=== PATIENT | male | born 1980 | race American Indian/Alaskan Native ===

== ENCOUNTER 2018-01-13 12:02 | Emergency (ER) | payer BC ==
[2018-01-13 12:18] VITALS: BP 137/86; PULSE 64; RESP 16; TEMP 98; O2SAT 99
[2018-01-13] MEDS ORDERED: Lidocaine 2% MPF (5 ml) Inj ONE (12:21)
[2018-01-13] MEDS ORDERED: Bacitracin 500 Units/gm Oint Foilpak UD ONE (12:21)
--- NOTE | 2018-01-13 12:27 | C.PDOC ---
History Of Present Illness 37 yo male come in for evaluation of laceration to Right hand sustained [employer] " working on car, cut with knife". Pt reports mildpain and bleeding over laceration side. Otherwise, pt denies deformity, weakness, sensory or vascular deficits to Right hand, denies any other active complaints. Ambulate to ED for evaluation, not in any apparent distress. Time Seen by Provider: 01/13/18 12:07 Chief Complaint (Nursing): Abnormal Skin Integrity History Per: Patient Onset/Duration Of Symptoms: Sudden Onset Past Medical History Reviewed: Historical Data, Nursing Documentation, Vital Signs Vital Signs: Last Vital Signs Temp 98 F 01/13/18 12:09 Pulse 64 01/13/18 12:09 Resp 16 01/13/18 12:09 BP 137/86 01/13/18 12:09 Pulse Ox 99 01/13/18 12:27 - Medical History PMH: No Chronic Diseases Family History: States: No Known Family Hx - Social History Hx Tobacco Use: No Hx Alcohol Use: No Hx Substance Use: No - Immunization History Hx Tetanus Toxoid Vaccination: No Hx Influenza Vaccination: No Hx Pneumococcal Vaccination: No Review Of Systems Except As Marked, All Systems Reviewed And Found Negative. Constitutional: Negative for: Fever, Chills ENT: Negative for: Throat Pain Cardiovascular: Negative for: Chest Pain Musculoskeletal: Positive for: Hand Pain Skin: Positive for: Lesions Neurological: Negative for: Weakness, Numbness Physical Exam - Physical Exam Appears: Well, Non-toxic, No Acute Distress Skin: Normal Color, Warm, Other (4cm cutaneous linear laceration over ulnar aspect Right hand, mild bloody oozing, no wound FB, no edema, no erythema.) Head: Normacephalic Eye(s): bilateral: PERRL Extremity: Normal ROM (of Right hand FAROM without difficulty, no neurovascular deficits distally), Tenderness (ulnar aspect Right hand around laceration), No Deformity, No Swelling ED Course And Treatment O2 Sat by Pulse Oximetry: 99 Pulse Ox Interpretation: Normal Progress Note: On re-eavluation, pt is afebrile, hemodynamicaly stable. NOn- toxic. Ambulatory in ED with stable gait. Right hand: laceration over ulnaraspect hand repaired w/sutures w/o difficulty. FAROM, no neurovascular deficits. tetanus given. Pt advised on wound care. ref. to f/u with PMD in 2 days for wound check. return to ED if any worsening or new hcanges. Laceration - Laceration Repair Right hand Wound Length (In cm): 4cm Description Of Wound: Linear Wound Cleansed With: Betadine Anesthesia: Lidocaine 2% Wound Examination: Irrigated With Saline, No FB With Wound Exploration, No Tendon Injury With Wound Exploration Wound Closure: Suture (#7) Suture Technique And Material Used: Interrupted, Nylon (4-0) Wound Complexity: Simple Disposition Counseled Patient/Family Regarding: Diagnosis, Need For Followup, Rx Given - Disposition Referrals: [facility] [Outside] Disposition: HOME/ ROUTINE Disposition Time: 12:52 Condition: STABLE Additional Instructions: Keep wound dry for 3-4 days, avoid prolong water exposure ( swimming, dishwashing, etc) Clean daily with Peroxide, apply antibacterial cream topically daily Take medication as prescribed Ibuprofen as need for pain Suture removal in 10 days Return to ED at any time if any sign of infection or any otehr new changes. Prescriptions: Cephalexin [cephalexin] 500 mg PO Q6 #28 cap Instructions: Laceration Repair With Stitches (DC) Forms: [employer] ([place]an) - Clinical Impression Clinical Impression: Laceration of hand
[2018-01-13] MEDS ORDERED: Lidocaine 2% Inj (20ml) INFIL ONE (12:28)
[2018-01-13] MEDS ORDERED: Bacitracin Ointment 30 GM TUBE TOP STA (12:28)
[2018-01-13] MEDS ORDERED: Tetanus/Diphtheria Toxoids 0.5 ml Syringe IM ONE ×2 (12:28→12:45)
== END 2018-01-13 13:03 | disposition home or self-care (01) ==
LOC: C.ER 12:02
DX: S61.411A Laceration without foreign body of right hand, initial encounter (principal); W26.0XXA Contact with knife, initial encounter; Y92.89 Other specified places as the place of occurrence of the external cause; Z23 Encounter for immunization

== ENCOUNTER 2018-01-23 10:00 | Emergency (ER) | payer BC ==
[2018-01-23 10:14] VITALS: BP 128/74; PULSE 62; RESP 20; TEMP 98.5; O2SAT 99
--- NOTE | 2018-01-23 10:24 | C.PDOC ---
History Of Present Illness 37 y/o male presents to ED for suture removal on right hand placed 10 days ago after sustaining laceration while working on car. Patient denies drainage, fever , new injury, numbness or weakness to hand. No other complaints at this time. Time Seen by Provider: 01/23/18 10:15 Chief Complaint (Nursing): Wound Check History Per: Patient History/Exam Limitations: no limitations Onset/Duration Of Symptoms: Days Ago, Laceration Current Symptoms Are (Timing): Still Present Past Medical History Reviewed: Historical Data, Nursing Documentation, Vital Signs Vital Signs: Last Vital Signs Temp 98.5 F 01/23/18 10:15 Pulse 62 01/23/18 10:15 Resp 20 01/23/18 10:15 BP 128/74 01/23/18 10:15 Pulse Ox 99 01/23/18 10:29 - Medical History PMH: No Chronic Diseases Surgical History: No Surg Hx Family History: States: No Known Family Hx - Social History Hx Tobacco Use: No Hx Alcohol Use: No Hx Substance Use: No - Immunization History Hx Tetanus Toxoid Vaccination: No Hx Influenza Vaccination: No Hx Pneumococcal Vaccination: No Review Of Systems Constitutional: Negative for: Fever, Chills Musculoskeletal: Positive for: Hand Pain Skin: Negative for: Rash, Bruising Neurological: Negative for: Weakness, Numbness Physical Exam - Physical Exam Appears: Non-toxic, No Acute Distress Skin: Warm, Dry, No Rash, Other (2cm healed laceration to right hand. No drainage or active bleeding) Head: Atraumatic, Normacephalic Oral Mucosa: Moist Extremity: Normal ROM, Capillary Refill (<2 seconds), No Deformity Pulses: Right Radial: Normal Neurological/Psych: Oriented x3, Normal Motor, Normal Sensation ED Course And Treatment O2 Sat by Pulse Oximetry: 99 (RA) Pulse Ox Interpretation: Normal Progress Note: 10 stitches removed from laceration on right palm, area was irrigated with saline and 5 steri strips applied. Patient tolerated procedure well. Disposition - Disposition Referrals: Latesha Bhakta, [Non-Staff] - Disposition: HOME/ ROUTINE Disposition Time: 10:20 Condition: GOOD Additional Instructions: LUIS E CANO, thank you for letting us take care of you today. Your provider was Carlos A Stallworth DO and you were treated for WOUND CHECK. The emergency medical care you received today was directed at your acute symptoms. If you were prescribed any medication, please fill it and take as directed. It may take several days for your symptoms to resolve. Return to the Emergency Department if your symptoms worsen, do not improve, or if you have any other problems. Please contact your doctor or call one of the physicians/clinics you have been referred to that are listed on the Patient Visit Information form that is included in your discharge packet. Bring any paperwork you were given at discharge with you along with any medications you are taking to your follow up visit. Our treatment cannot replace ongoing medical care by a primary care provider outside of the emergency department. Thank you for allowing the [facility] team to be part of your care today. Follow up with your doctor if you have any concerns. Instructions: Stitches Removal Forms: [employer] (Mosotho) - Clinical Impression Clinical Impression: Visit for suture removal - Scribe Statement The provider has reviewed the documentation as recorded by the Scribdenton Ramon All medical record entries made by the Scribe were at my direction and personally dictated by me. I have reviewed the chart and agree that the record accurately reflects my personal performance of the history, physical exam, medical decision making, and the department course for this patient. I have also personally directed, reviewed, and agree with the discharge instructions and disposition.
== END 2018-01-23 10:31 | disposition home or self-care (01) ==
LOC: C.ER 10:00
DX: Z48.02 Encounter for removal of sutures (principal)